=== PATIENT | male | born 1995 | race Caucasian/White ===

== ENCOUNTER → 2017-07-27 | Outpatient (CLI) | payer OTHER ==
--- NOTE | ~2017-07-27 | 24HR ---
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 The study duration was 24 hours and the technical quality was good. 2. Predominant rhythm sinus at an average heart rate of 88 bpm, range 45-152 bpm. Longest RR interval 1.6 seconds. 3. Occasional, isolated atrial premature complexes. No episodes of SVT. No episodes of atrial fibrillation or atrial flutter. No heart block. 4. Rare, isolated premature ventricular complexes. No episodes of ventricular tachycardia. No ventricular couplets or triplets. 5. Symptoms reported as "heart pounding" corresponded to sinus rhythm or sinus tachycardia Electronically Signed On 07-31-2017 7:42:30 CDT by iH Norris [email or web address] <ELECTRONICALLY SIGNED> By: Hi Norris MD, [facility] 07/31/17 0742 1134 1134 Hi Norris MD, [facility] /EPI
== END ==
LOC: CV 07:06
DX: Z01.818 Encounter for other preprocedural examination (principal); R00.2 Palpitations